=== PATIENT | male | born 1950 | race Caucasian/White ===

== ENCOUNTER → 2017-07-10 | Outpatient (CLI) | payer MEDICARE, OTHER ==
--- NOTE | 2017-07-10 10:48 | XR ---
EXAMINATION TYPE: XR Hip Complete RT DATE OF EXAM: 07/10/2017 COMPARISON: NONE HISTORY: Pain TECHNIQUE: 2 views submitted FINDINGS: There is no evidence of erosive change or acute fracture. Hypertrophic change of the acetabulum noted. Vascular calcifications the pelvis noted. Arthropathy of the SI joints seen. IMPRESSION: 1. No evidence of acute fracture or dislocation. 2. Acetabular hypertrophy correlate for femoral acetabular impingement. 2. SI joint arthropathy.
--- NOTE | 2017-07-10 10:51 | XR ---
EXAM TYPE: LUMBAR SPINE X RAY SERIES COMPARISON: NONE HISTORY: Pain TECHNIQUE: 4 views are submitted. FINDINGS: Alignment is anatomic. The pedicles are intact. The transverse processes are intact. There is face t arthropathy at multiple levels. Mild multilevel degenerative disc disease seen. IMPRESSION: 1. Multilevel facet arthropathy with most marked changes at L4-5 and L5-S1. 2. Multilevel mild degenerative disc disease.
== END | disposition home or self-care (01) ==
LOC: RADXRMAIN 10:19
PROVIDERS: ATTEND Family Medicine
DX: M51.36 Other intervertebral disc degeneration, lumbar region (principal); M46.97 Unspecified inflammatory spondylopathy, lumbosacral region; M25.852 Other specified joint disorders, left hip
CPT/HCPCS: 72100; 73502

== ENCOUNTER → 2021-07-16 | Outpatient (CLI) | payer MEDICARE, OTHER ==
--- NOTE | 2021-07-17 00:31 | MR ---
EXAMINATION TYPE: MR cspine/tspine/lspine wo con DATE OF EXAM: 07/16/2021 COMPARISON: HISTORY: LBP, BLE weakness, hx cervical fusion. TECHNIQUE: Multiplanar multiecho imaging of the cervical thoracic and lumbar spine without contrast. Cervical vertebra have normal alignment. There is old anterior fusion surgery at C5-C6. There is smal l posterior disc bulge at C3-4. Canal measures 7.5 mm at C3-4. This is the narrowest point. Canal horacio sures 8 mm at C6-7. Cervical spinal cord shows no edema. Brainstem is intact. There is no cervical co mpression fracture. There is multilevel cervical hypertrophic mild facet arthropathy. Thoracic vertebra have normal alignment. There is no compression fracture. Thoracic spinal cord shows fairly normal signal pattern. There is no edema. There is a mild posterior disc bulging at T10-11. N o significant thoracic spinal stenosis. There is no thoracic paraspinal mass. Canal measures 9 mm at T10-11. There is no evidence of thoracic focal bone destruction. Lumbar vertebra have normal alignment. There is some degenerative disc space narrowing from L1 to L4. There is no compression fracture. I see no significant lumbar spinal stenosis. There is mild hypertr ophic facet arthropathy in the lower lumbar spine. There is no significant neural foraminal narrowing . There is no lumbar paraspinal mass. The sacroiliac joints are intact. IMPRESSION: Mild spondylotic changes in the cervical thoracic and lumbar spine. No significant spinal stenosis. N o fracture. Cervical spine fusion surgery. There is some lateral recess stenosis in the lumbar spine at L2-3 due to facet arthropathy.
== END | disposition home or self-care (01) ==
LOC: RADMRIMAIN 08:23
PROVIDERS: ATTEND Family Medicine
DX: M47.812 Spondylosis without myelopathy or radiculopathy, cervical region (principal); M47.814 Spondylosis without myelopathy or radiculopathy, thoracic region; M47.816 Spondylosis without myelopathy or radiculopathy, lumbar region; Z98.1 Arthrodesis status; M48.061 Spinal stenosis, lumbar region without neurogenic claudication
CPT/HCPCS: 72141; 72146; 72148

== ENCOUNTER → 2022-06-12 | Outpatient (CLI) | payer MEDICARE, OTHER ==
--- NOTE | 2022-06-13 11:04 | MR ---
EXAMINATION TYPE: MR lumbar spine wo/w con DATE OF EXAM: 06/12/2022 4:41 PM COMPARISON: 07/16/2021. CLINICAL INDICATION:Male, 72 years old with history of M54.41 LUMBAGO WITH SCIATICA, RIGHT SIDE; TECHNIQUE: Multi planar, multi sequence imaging was performed utilizing: T1-weighted, T2-weighted, a nd turbo inversion recovery imaging of the lumbar spine. IV Contrast: 9 cc Gadavist FINDINGS: Alignment: The lumbar vertebral bodies have preserved heights with straightening of the alignment. Cord: The conus medullaris and the distal spinal cord appear unremarkable with regards to their signa l intensity and morphology. Bones/Discs: Reactive bony edema seen within the anterior-inferior aspect of the L1 vertebral body. O n with other scattered Modic endplate changes. Multilevel degenerative disc disease is noted and most pronounced at the L1-L2. Multilevel disc desiccation is present. L1-L2: No significant disc pathology. Spinal canal is patent. Facet joint arthropathy with moderate l eft and mild to moderate right neural foraminal stenosis. L2-L3: Disc bulging and facet joint arthropathy result in moderate to severe spinal canal stenosis wi th cauda equina bunching and moderate bilateral neural foraminal stenosis. L3-L4: Disc bulging and facet joint arthropathy result in mild spinal canal and moderate bilateral ne ural foraminal stenosis. L4-L5: Disc bulging and facet joint arthropathy result in mild spinal canal and moderate bilateral ne ural foraminal stenosis. L5-S1: Facet joint arthropathy with moderate bilateral neural foraminal stenosis. The spinal canal is patent. Other findings: IMPRESSION: 1. No definitive evidence of disc herniation. 2. L2-L3 moderate to severe spinal canal stenosis secondary disc bulge and facet joint arthropathy. 3. Multilevel disc degeneration changes with neural foraminal stenosis at multiple levels with at [address] moderate severity.
== END | disposition home or self-care (01) ==
LOC: RADMRIMAIN 15:44
PROVIDERS: ATTEND Family Medicine
DX: M48.061 Spinal stenosis, lumbar region without neurogenic claudication (principal); M51.16 Intervertebral disc disorders with radiculopathy, lumbar region
CPT/HCPCS: 72158; A9585

== ENCOUNTER → 2023-05-15 | Outpatient (CLI) | payer MEDICARE ==
--- NOTE | 2023-05-21 10:15 | MR ---
EXAMINATION TYPE: MR shoulder RT wo con DATE OF EXAM: 05/15/2023 COMPARISON: None HISTORY: 73-year-old male M24.811, Rt shoulder pain TECHNIQUE: Multiplanar, multisequence imaging of the right shoulder is performed without contrast. FINDINGS: There is heterogeneously and thickening of the subscapularis tendon with attritional tearing allowing for slight medial subluxation of the long head biceps tendon in the upper bicipital groove. The andrea rity of the subscapularis tendon remains intact. There is some interstitial signal change within the intracapsular portion of the long head biceps ten don suggesting tendinosis. No retracted tear. Mild fluid along the biceps tendon sheath. There is an os acromiale with fluid and degenerative change at the pseudoarticulation. There is also mild to moderate degenerative change at the AC joint with a ganglion cyst extending superiorly from t he joint measuring 1.2 cm. There is mild fluid along the subacromial/subdeltoid bursa with a very high-grade bursal sided tear o f the anterior to mid supraspinatus tendon measuring 1.5 cm long and 1.8 cm AP. Only a few articular sided strands remain here. Extensive heterogeneity of the remainder of the supraspinatus and infraspinatus tendons with prominen t intrasubstance change. The infraspinatus tendon show small amount of fluid tracking along the myote ndinous junction. Minimal fatty streaks within both infraspinatus and teres minor muscle bellies without significant fa tty atrophy. There is moderate overall degenerative change of the glenohumeral joint with irregular cartilage thin sergio. Extensive subchondral marrow signal changes along the glenoid and some flattening of the passenger representative ior glenoid curvature. Degenerative signal within the superior labrum. Findings suggest tear extending from the superior asp ect of the posterior labrum down to the inferior aspect of the posterior labrum. Physiologic glenohumeral joint fluid. No Hill-Sachs deformity. No suspicious bone marrow replacement. IMPRESSION: 1. Marked diffuse rotator cuff tendinosis. There is a very high-grade bursal sided tear of the anteri or to mid supraspinatus tendon measuring 1.5 x 1.8 cm. Only a few articular sided strands remain inta ct here. 2. Prominent intrasubstance change throughout the remainder of the supraspinatus and infraspinatus te ndons with some fluid tracking along the infraspinatus myotendinous junction. 3. Attritional tearing of the subscapularis tendon allowing for slight medial subluxation of the long head biceps tendon in the upper bicipital groove. The majority of the subscapularis tendon remains i ntact. 4. Mild to moderate AC joint OA with a 1.2 cm ganglion cyst superiorly. Additional os acromiale with degenerative change at its pseudoarticulation. This may be a source of pain for the patient. 5. Moderate glenohumeral joint OA along with a degenerative and torn posterior labrum extending nearl y 180 degrees.
== END | disposition home or self-care (01) ==
LOC: RADMRIMAIN 10:52
PROVIDERS: ATTEND Family Medicine
DX: M24.811 Other specific joint derangements of right shoulder, not elsewhere classified (principal); M67.813 Other specified disorders of tendon, right shoulder; M67.411 Ganglion, right shoulder; M19.011 Primary osteoarthritis, right shoulder